=== PATIENT | male | born 1950 | race Caucasian/White ===

== ENCOUNTER 2019-05-12 20:27 | Emergency (ER) | payer MEDICARE, BC ==
[2019-05-12] MEDS ORDERED: Adacel (T-DAP) 0.5 ML SYRINGE ONE (20:55)
--- NOTE | 2019-05-12 21:08 | RAD ---
EXAM: 3 views of the left foot HISTORY: Left foot pain after injury COMPARISON: None FINDINGS: 3 views of the left foot shows a comminuted fracture of the distal phalanx of the fourth to e as well as a comminuted fracture of the distal phalanx of the fifth toe. Overlying soft tissue swelling is seen. No degenerative changes are present. IMPRESSION: Comminuted distal phalanx fracture of the fourth and fifth toes
--- NOTE | 2019-05-12 21:13 | RAD ---
EXAM: 2 views of the left tibia/fibula HISTORY: Leg pain after fall COMPARISON: None FINDINGS: There is no evidence of acute fracture or dislocation. No soft tissue swelling is seen. No degenerative changes are seen in the knee or ankle. IMPRESSION: No evidence of acute osseous abnormality.
[2019-05-12] MEDS ORDERED: Bacitracin 1 PK ONE ×2 (21:27→21:37)
== END 2019-05-12 21:55 | disposition home or self-care (01) ==
LOC: NAV ERS 20:27
DX: S92.532A Displaced fracture of distal phalanx of left lesser toe(s), initial encounter for closed fracture (principal); N40.0 Benign prostatic hyperplasia without lower urinary tract symptoms; J45.909 Unspecified asthma, uncomplicated; Z79.51 Long term (current) use of inhaled steroids; Z79.899 Other long term (current) drug therapy; W20.8XXA Other cause of strike by thrown, projected or falling object, initial encounter
CPT/HCPCS: 90471; 90715